=== PATIENT | male | born 1945 | race African-American/Black ===

== ENCOUNTER 2025-10-10 04:58 | Emergency (ER) | payer OTHER ==
[~2025-10-10] VITALS: Ht 175.3 cm; Wt 55.0 kg
[2025-10-10 05:06] VITALS: BP 153/73; PULSE 84; RESP 20; TEMP 98.4; O2SAT 100
== END 2025-10-10 06:32 | disposition left against medical advice (07) ==
LOC: ER 04:58 → EDBD 04:58 → ER 06:03
DX: R33.9 Retention of urine, unspecified (principal); Z53.21 Procedure and treatment not carried out due to patient leaving prior to being seen by health care provider